=== PATIENT | female | born 1990 | race Caucasian/White ===

== ENCOUNTER 2024-11-27 11:59 | Emergency (ER) | payer MEDICAID ==
[~2024-11-27] VITALS: Ht 170.2 cm; Wt 130.0 kg
[2024-11-27] MEDS: KETOROLAC TROMETH 60MG/2ML VIAL IM ONE (14:17)
[2024-11-27] MEDS: ACETAMINOPHEN 325 MG TAB PO ONE (14:17)
[2024-11-27] MEDS: ONDANSETRON ODT 4 MG TAB PO ONE (14:19)
[2024-11-27 14:25] VITALS: PULSE 64; RESP 18; O2SAT 95
--- NOTE | 2024-11-27 15:38 | DVH ---
CLINICAL INDICATION: fall, R knee pain TECHNIQUE: 3 radiographic views of the right knee were obtained. Comparison: None FINDINGS/IMPRESSION: There is no evidence of acute fracture or dislocation. The visualized joint space is well maintained. The alignment is anatomical. There is no radiopaque foreign body. HS:Y
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
[2024-11-27] MEDS ORDERED: IBUP-1455 PO (16:18)
[2024-11-27] MEDS ORDERED: METH-1181 PO (16:18)
[2024-11-27] MEDS ORDERED: ACET-1304 PO (16:18)
[2024-11-27 16:30] VITALS: BP 149/99; PULSE 77; RESP 18; TEMP 98.5; O2SAT 95
== END 2024-11-27 16:35 | disposition home or self-care (01) ==
LOC: ER 11:59
DX: S39.012A Strain of muscle, fascia and tendon of lower back, initial encounter (principal); S70.01XA Contusion of right hip, initial encounter; S80.01XA Contusion of right knee, initial encounter; K21.9 Gastro-esophageal reflux disease without esophagitis; F17.210 Nicotine dependence, cigarettes, uncomplicated; Z88.8 Allergy status to other drugs, medicaments and biological substances; Z79.899 Other long term (current) drug therapy; Z98.890 Other specified postprocedural states; W18.39XA Other fall on same level, initial encounter; Y93.89 Activity, other specified; Y92.89 Other specified places as the place of occurrence of the external cause; Y99.8 Other external cause status
CPT/HCPCS: 36415; 72131; 73562; 74176; 84702; 96372; 99285; J1885; Q0162

== ENCOUNTER 2025-01-13 08:54 | Emergency (ER) | payer MEDICAID ==
[~2025-01-13] VITALS: Ht 170.2 cm; Wt 126.4 kg
[~2025-01-13 08:54] MED LIST: ACET-1304 PO; IBUP-1455 PO; METH-1181 PO
[2025-01-13 08:56] VITALS: PULSE 114; RESP 18; O2SAT 98
[2025-01-13 11:21] VITALS: BP 115/89; RESP 16; O2SAT 99
[2025-01-13] MEDS: ONDANSETRON ODT 4 MG TAB PO ONE (11:21)
[2025-01-13 11:22] LABS: Urine Bacteria FEW /hpf (None Seen); Urine Blood Negative /uL (Negative); Urine Clarity Turbid (Clear); Urine Color Colorless (Yellow); Urine Protein, UAD Negative (Negative); Urine Specific Gravity 1.006 (1.001-1.035); Urine Squamous Epithelial Cell MOD /hpf (<5); Urine Urobilinogen Normal (Negative); Urine WBC 1 /HPF (0-5); Urine pH 7.5 (5.0-9.0)
--- NOTE | 2025-01-13 11:23 | ED.PDOC ---
HPI Comments 34-year-old female presents to the ER with a chief complaint of palpitations x onset today with associated nausea. Patient states that she woke up with palpitations at 0530 this morning and describes as "pounding in my chest". Patient also reports substernal chest pain episodes that are intermittent in timing, not currently active at time of evaluation. Patient reports nausea, but denies any active vomiting at this time. Denies SOB. Patient also states that she started Wegovy x 2 weeks ago and has had constipation for x 3 days, but had a large bowel movement this morning. Chief Complaint: Palpitations Time Seen by MD: 10:50 Primary Care Provider: SHEELA Renner Notes: Medications, Allergies Allergies: Coded Allergies: Fish Allergy (Verified Allergy, Unknown, 02/10/16) Hydrocodone (Verified Allergy, Unknown, 02/10/16) Home Meds Active Scripts Methocarbamol (Methocarbamol) 500 Mg Tab, 1000 MG PO Q8HPRN PRN, #30 TAB prn muscle pain/spasm Prov:TYRONE ROBERSON MD 11/27/24 Acetaminophen (Tylenol Extra Strength) 500 Mg Tab, 1000 MG PO Q6HP PRN, #30 TAB prn pain Prov:TYRONE ROBERSON MD 11/27/24 Ibuprofen Micronized (Ibuprofen) 800 Mg Tab, 800 MG PO Q8HP PRN, #30 TAB prn pain Prov:TYRONE ROBERSON MD 11/27/24 Information Source: Patient Mode of Arrival: Ambulatory Severity: Moderate Timing: Days Duration: Intermittent Prehospital treatment: None Location: Chest (L) Radiation: No Radiation Quality: Other (POUNDING ) Onset: At Rest Cardiac Risk Factors: None PE Risk Factors: None History of: None Associated Signs and Symptoms: Palpitations, N/V Past Medical History PAST MEDICAL HISTORY: Anxiety, Depression Surgical History: Denies all surgeries Family History Family History: Reviewed,noncontributory to illness, Unobtainable Social History Smoker: Cigarettes Alcohol: Occasionally Drugs: Denies Drug Use Lives In: Home Constitutional: denies: chills, diaphoresis, fatigue, fever, malaise, sweats, weakness, others EENTM: denies: blurred vision, double vision, ear bleeding, ear discharge, ear drainage, ear pain, ear ringing, eye pain, eye redness, hearing loss, mouth pain, mouth swelling, nasal discharge, nose bleeding, nose congestion, nose pain, photophobia, tearing, throat pain, throat swelling, voice changes, others Respiratory: denies: cough, hemoptysis, orthopnea, SOB at rest, shortness of breath, SOB with excertion, stridor, wheezing, others Cardiovascular: reports: palpitations; denies: chest pain, dizzy spells, diaphoresis, Dyspnea on exertion, edema, irregular heart beat, left arm pain, lightheadedness, PND, syncope, others Gastrointestinal: reports: nausea; denies: abdomen distended, abdominal pain, blood streaked bowels, constipated, diarrhea, dysphagia, difficulty swallowing, hematemesis, melena, poor appetite, poor fluid intake, rectal bleeding, rectal pain, vomiting, others Genitourinary: denies: abnormal vagina bleeding, burning, dyspareunia, dysuria, flank pain, frequency, hematuria, incontinence, pain, , vagina discharge, urgency, others Neurological: denies: dizziness, fainting, headache, left sided numbness, left sided weakness, numbness, paresthesia, pre-existing deficit, right sided numbness, right sided weakness, seizure, speech problems, tingling, tremors, weakness, others Musculoskeletal: denies: back pain, gout, joint pain, joint swelling, muscle pain, muscle stiffness, neck pain, others Integumetry: denies: bruises, change in color, change in hair/nails, dryness, laceration, lesions, lumps, rash, wounds, others Allergic/Immunocompromised: denies: Difficulty Healing, Frequent Infections, Hives, Itching, others Hematologic/Lymphatic: denies: anemia, blood clots, easy bleeding, easy bruising, swollen glands, others Endocrine: denies: excessive hunger, excessive sweating, excessive thirst, excessive urination, flushing, intolerance to cold, intolerance to heat, unexplained weight gain, unexplained weight loss, others Psychiatric: denies: anxiety, bipolar disorder, depression, hopeless, panic disorder, schizophrenia, sleepless, suicidal, others All Other Systems: Reviewed and Negative Physical Exam General Appearance: Mild Distress, Obese HEENT: Normal ENT Inspection, Pharynx Normal, TMs Normal Neck: Full Range of Motion, Non-Tender, Normal, Normal Inspection Respiratory: Chest Non-Tender, Lungs Clear, No Accessory Muscle Use, No Respiratory Distress, Normal Breath Sounds Cardiovascular: No Edema, No JVD, No Murmur, No Gallop, Normal Peripheral Pulses, Regular Rate/Rhythm Breast Exam: Deferred Gastrointestinal: No Organomegaly, Non Tender, No Pulsatile Mass, Normal Bowel Sounds, Soft Genitalia: Deferred Pelvic: Deferred Rectal: Deferred Extremities: No calf tenderness, Normal capillary refill, Normal inspection, Normal range of motion, Non-tender, No pedal edema Musculoskeletal : Apperance: Normal Neurologic: Alert, denture contour wire specialist II-XII nml as Tested, No Motor Deficits, Normal Affect, Normal Mood, No Sensory Deficits Cerebellar Function: Normal Reflexes: Normal Skin: Dry, Normal Color, Warm Lymphatic: No Adenopathy EKG EKG : Pulse Rate (adult): 84 Ronald: Normal Cardiac Rhythm: NSR Block: None Hypertrophy: None ST: Normal Comments LOW VOLTAGE, PRECORD LEADS Was a procedure done? Was a procedure done?: No CP Differential Dx Differential Diagnosis: Anxiety / Panic Attack, Electrolyte Disorder Differential Diagnosis: Angina, Chest Wall Pain, Costochondritis, Esophageal reflux/spasm, Gastritis, Pericarditis, Pneumothorax, Pulmonary Embolus Comment Dehydration, side effect of Wegovy X-Ray, Labs, Meds, VS Vital Signs Date Time Temp Pulse Resp B/P (MAP) Pulse Ox O2 Delivery O2 Flow Rate FiO2 01/13/25 11:27 84 01/13/25 11:21 74 16 115/89 (98) 99 01/13/25 09:58 84 01/13/25 08:56 98.2 114 18 138/103 (115) 98 135/100 (112) 01/13/25 08:56 114 18 98 Room Air* 0 21 Lab Test 01/13/25 10:14 01/13/25 09:20 01/13/25 09:05 Range/Units Troponin I High Sensitivity < 3 L < 3 L </=34 ng/L Urine Color Colorless Yellow Urine Clarity Turbid H Clear Urine pH 7.5 5.0-9.0 Urine Specific [place] 1.006 1.001-1.035 Urine Protein Negative Negative Urine Ketones Negative Negative Urine Blood Negative Negative /uL Urine Nitrite Negative Negative Urine Bilirubin Negative Negative Urine Urobilinogen Normal Negative mg/dL Urine Leukocyte Esterase Negative Negative /uL Urine RBC <1 0 - 4 /hpf Urine Microscopic WBC 1 0-5 /HPF Urine Squamous Epithelial Cells Mod <5 /hpf Urine Bacteria Few H None Seen /hpf Urine Glucose Normal Normal mg/dL Current Medications Medications (Trade) Dose Ordered Sig/Edin Route Start Time Stop Time Status Last Admin Ondansetron HCl (Zofran Po) 4 mg ONCE ONCE PO 01/13/25 11:15 01/13/25 11:16 DC 01/13/25 11:21 Time of 1ST Reevaluation: 11:20 Reevaluation 1ST: Unchanged Time of 2ND Reevaluation: 12:05 Reevaluation 2ND: Improved Patient Education/Counseling: Diagnosis, Treatment, Prognosis Family Education/Counseling: Diagnosis, Treatment, Prognosis Departure 1 Departure Time of Disposition: 12:03 Impression: Primary Impression: Palpitations Additional Impression: Dehydration Disposition: HOME / SELF CARE / HOMELESS Condition: Fair Additional Instructions: Follow up with the primary care physician to see if he should still continue Wegovy. Please make sure you drink plenty of water. Please return back to the ER if symptoms worsen or persist. Discharged With: Self Critical Care Note Critical Care Time?: No Stability Stability form required: No Heart Score Heart Score: Heart Score Response (Comments) Value History Moderate Suspicious 1 EKG Normal 0 Age <45 0 Risk Factors 1 or 2 risk factors 1 Troponin Normal limit 0 Total 2 I personally scribed for FADIA HULL MD ([email or web address]) on 01/13/25 at 11:23. Electronically submitted by Magdy Flood ([email or web address]). I personally scribed for FADIA HULL MD ([email or web address]) on 01/13/25 at 11:27. Electronically submitted by Magdy Flood ([email or web address]). I personally scribed for FADIA HULL MD ([email or web address]) on 01/13/25 at 12:03. Electronically submitted by Magdy Flood ([email or web address]). I personally scribed for FADIA HULL MD ([email or web address]) on 01/13/25 at 12:03. Electronically submitted by Magdy Flood ([email or web address]). FADIA HULL MD Jan 13, 2025 11:23
[2025-01-13 11:27] VITALS: PULSE 84
--- NOTE | 2025-01-15 01:04 | ECG ---
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
--- NOTE | 2025-01-15 08:04 | ECG ---
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
== END 2025-01-13 12:11 | disposition home or self-care (01) ==
LOC: ER 08:57
DX: E86.0 Dehydration (principal); R00.2 Palpitations; F41.9 Anxiety disorder, unspecified; F32.9 Major depressive disorder, single episode, unspecified; F17.210 Nicotine dependence, cigarettes, uncomplicated; Z79.899 Other long term (current) drug therapy; Z88.5 Allergy status to narcotic agent; Z91.013 Allergy to seafood
CPT/HCPCS: 36415; 81001; 84484; 93005; 99284; Q0162

== ENCOUNTER 2025-10-05 08:14 | Emergency (ER) | payer MEDICAID ==
[~2025-10-05] VITALS: Ht 170.2 cm; Wt 115.2 kg
[2025-10-05] MEDS ORDERED: KETOROLAC TROMETH 30 MG/ML 1ML VIAL ONE (09:59)
[2025-10-05] MEDS ORDERED: FAMOTIDINE (10MG/ML) 2ML VL IV ONE (09:59)
[2025-10-05] MEDS ORDERED: ACETAMINOPHEN 325 MG TAB PO ONE (10:00)
[2025-10-05] MEDS ORDERED: ONDANSETRON ODT 4 MG TAB ONE (10:01)
[2025-10-05] MEDS ORDERED: FAMOTIDINE 20 MG TAB ONE (10:02)
--- NOTE | 2025-10-05 10:08 | DVH ---
AP portable chest CLINICAL INDICATION: weakness FINDINGS: Heart size is normal. No infiltrates or effusions. No bony thoracic abnormalities. IMPRESSION: 1. Normal chest x-ray.
[2025-10-05] MEDS: ONDANSETRON ODT 4 MG TAB PO ONE (10:15)
[2025-10-05] MEDS: ACETAMINOPHEN 325 MG TAB PO ONE (10:16)
[2025-10-05] MEDS: KETOROLAC TROMETH 30 MG/ML 1ML VIAL IM ONE (10:18)
[2025-10-05] MEDS: FAMOTIDINE 20 MG TAB PO ONE (10:18)
--- NOTE | 2025-10-05 10:45 | ED.PDOC ---
History of Present Illness HPI Comments This is a 35 year-old female who presents to the ED with a chief complaint of N/V, sweats, and body pain for X5 days. 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 Patient has a social history of MJ usage, cigarettes, and occasional ETOH intoxification. Patient has no further com plaints at this time and otherwise denies symptoms of dizziness, weakness, hematemesis, dysuria, or hematuria. Chief Complaint: Flu like Time Seen by MD: 09:25 Reviewed Notes: Nurses Notes Information Source: Patient Mode of Arrival: Ambulatory Timing: Days Duration: Since onset Severity: Moderate Past Medical History PAST MEDICAL HISTORY: Anxiety, Depression Past Medical History (Other): PCOS Surgical History: Denies all surgeries Family History Family History: Reviewed,noncontributory to illness, Unobtainable Social History Smoker: Cigarettes Alcohol: Occasionally Drugs: Marijuana Lives In: Home Constitutional: Sweats, Other (body pain ) EENTM: No Symptoms Reported Respiratory: No Symptoms Reported Cardiovascular: No Symptoms Reported Gastrointestinal: Nausea, Vomiting Genitourinary: No Symptoms Reported Neurological: No Symptoms Reported Musculoskeletal: No Symptoms Reported Integumentary: No Symptoms Reported Allergic/Immunocompromised: others Hematologic/Lymphatic: No Symptoms Reported Endocrine: No Symptoms Reported Psychiatric: No symptoms Reported All Other Systems: Reviewed and Negative Physical Exam General Appearance: Mild Distress, Obese HEENT: Normal ENT Inspection, Pharynx Normal, TMs Normal Neck: Full Range of Motion, Non-Tender, Normal, Normal Inspection Respiratory: Chest Non-Tender, Lungs Clear, No Respiratory Distress, Normal Breath Sounds Cardiovascular: No Edema, No Murmur, No Gallop, Normal Peripheral Pulses, Regular Rate/Rhythm Breast Exam: Deferred Gastrointestinal: Non Tender, Normal Bowel Sounds, Soft Genitalia: Deferred Pelvic: Deferred Rectal: Deferred Extremities: Normal inspection, Normal range of motion, Non-tender, No pedal edema Musculoskeletal : Apperance: Normal Neurologic: Alert, No Motor Deficits, Normal Affect, Normal Mood, No Sensory Deficits Cerebellar Function: NOT DONE Reflexes: NOT DONE Skin: Dry, Normal Color, Warm Lymphatic: No Adenopathy Was a procedure done? Was a procedure done?: No Fever Differential Dx Differential Diagnosis: Dehydration, UTI, Viral Syndrome X-Ray, Labs, Meds, VS Vital Signs Date Time Temp Pulse Resp B/P (MAP) Pulse Ox O2 Delivery O2 Flow Rate FiO2 10/05/25 10:16 98.5 10/05/25 09:17 97.9 72 18 128/87 (101) 100 97.9 10/05/25 09:17 72 18 100 Room Air 10/05/25 08:16 98.3 72 17 144/83 99 98.3 Lab Test 10/05/25 10:20 Range/Units White Blood Count 7.6 4.4-10.8 10^3/uL Red Blood Count 5.35 H 4.0-5.20 10^6/uL Hemoglobin 15.8 12.2-16.2 g/dL Hematocrit 46.2 H 36.0-46.0 % Mean Corpuscular Volume 86.3 80.0-100.0 fL Mean Corpuscular Hemoglobin 29.6 28.0-32.0 pg Mean Corpuscular Hemoglobin Concent 34.2 32.0-36.0 g/dL Red Cell Distribution Width 13.6 11.8-14.3 % Platelet Count 220 140-450 10^3/uL Mean Platelet Volume 8.0 6.9-10.8 fL Neutrophils (%) (Auto) 62.2 37.0-80.0 % Lymphocytes (%) (Auto) 30.7 10.0-50.0 % Monocytes (%) (Auto) 6.2 0.0-12.0 % Eosinophils (%) (Auto) 0.6 0.0-7.0 % Basophils (%) (Auto) 0.3 0.0-2.0 % Neutrophils # (Auto) 4.7 1.6-8.6 10 ^3/uL Lymphocytes # (Auto) 2.3 0.4-5.4 10 ^3/uL Monocytes # (Auto) 0.5 0-1.3 10 ^3/uL Eosinophils # (Auto) 0 0-0.8 10 ^3/uL Basophils # (Auto) 0 0-0.2 10 ^3/uL Nucleated Red Blood Cells 0.1 % Sodium Level 139 136-145 mmol/L Potassium Level 4.5 3.5-5.1 mmol/L Chloride Level 106 98-107 mmol/L Carbon Dioxide Level 27 20-31 mmol/L Anion Gap 6 5-15 Blood Urea Nitrogen 9 9-23 mg/dL Creatinine 0.72 0.550-1.02 mg/dL Glomerular Filtration Rate Calc 111 >90 mL/min BUN/Creatinine Ratio 12.5 10.0-20.0 Serum Glucose 89 74-106 mg/dL Calcium Level 9.7 8.7-10.4 mg/dL Current Medications Medications (Trade) Dose Ordered Sig/Edin Route Start Time Stop Time Status Last Admin Ondansetron HCl (Zofran Po) 4 mg ONCE ONCE PO 10/05/25 10:00 10/05/25 10:01 DC 10/05/25 10:15 Acetaminophen (Tylenol Tablet) 650 mg ONCE ONCE PO 10/05/25 10:00 10/05/25 10:01 DC 10/05/25 10:16 Famotidine (Pepcid Tablet) 20 mg ONCE ONCE PO 10/05/25 10:00 10/05/25 10:01 DC 10/05/25 10:18 Time of 1ST Reevaluation: 10:40 Reevaluation 1ST: Unchanged Patient Education/Counseling: Diagnosis, Treatment Family Education/Counseling: No Family Present SEPSIS Sepsis Screen Date sepsis recognized/suspect: Oct 05, 2025 Time Sepsis recognized/suspect: 815 Recent Procedure: No On Antibiotic Therapy: No Respiratory Rate >20: No Heart Rate >90: No Temp<36 C (96.8 F) or >38.3 C: No SBP <90 or MAP <65 mmHG: No New Acute Mental Status Change: No Is the patient on CPAP, BIPAP,: No Physician Orders Urinalysis (10/05/25 09:46) Chest Portable (10/05/25 09:46) Vital Signs Date Time Temp Pulse Resp B/P (MAP) Pulse Ox O2 Delivery O2 Flow Rate FiO2 10/05/25 10:16 98.5 10/05/25 09:17 97.9 72 18 128/87 (101) 100 97.9 10/05/25 09:17 72 18 100 Room Air 10/05/25 08:16 98.3 72 17 144/83 99 98.3 Laboratory Tests Test 10/05/25 10:20 White Blood Count 7.6 10^3/uL (4.4-10.8) Medications Medications Dose Ordered Sig/Edin Route Start Time Stop Time Status Last Admin Dose Admin Acetaminophen 650 mg ONCE ONCE PO 10/05/25 10:00 10/05/25 10:01 DC 10/05/25 10:16 Famotidine 20 mg ONCE ONCE PO 10/05/25 10:00 10/05/25 10:01 DC 10/05/25 10:18 Ondansetron HCl 4 mg ONCE ONCE PO 10/05/25 10:00 10/05/25 10:01 DC 10/05/25 10:15 Departure 1 Departure Time of Disposition: 11:51 (My judgment the patient likely with viral syndrome. Patient's workup is benign. We will discharge patient home with outpatient follow up) Impression: Primary Impression: Acute viral syndrome Disposition: HOME / SELF CARE / HOMELESS Condition: Stable Additional Instructions: You likely have a viral illness. It is important to stay well rested and well hydrated. You can take Tylenol and Motrin as needed for pain and fever. For a sore throat you can drink warm tea with honey. You can take [id number] pseudoephedrine for nasal congestion. He should follow up with your regular doctor within 1 week to ensure you are doing better. If your symptoms worsen or you have any other concerns please return to the emergency room. Discharged With: Self Critical Care Note Critical Care Time?: No Stability Stability form required: No Heart Score Heart Score: Heart Score Response (Comments) Value History N/A 0 EKG N/A 0 Age N/A 0 Risk Factors N/A 0 Troponin N/A 0 Total 0 I personally scribed for NINA DAWN MD ([email or web address]) on 10/05/25 at 10:45. Electronically submitted by Mayi TaverasHuafeng Bi[employer]). NINA DAWN MD Oct 05, 2025 10:45
[2025-10-05 10:50] LABS: Hematocrit 46.2 % (36.0-46.0); Hemoglobin 15.8 g/dL (12.2-16.2); Mean Corpuscular Hemoglobin 29.6 pg (28.0-32.0); Mean Corpuscular Volume 86.3 fL (80.0-100.0); Nucleated Red Blood Cells % 0.1 %
[2025-10-05 10:55] LABS: Chloride 106 mmol/L (98-107); Potassium 4.5 mmol/L (3.5-5.1); Sodium 139 mmol/L (136-145)
[2025-10-05 10:56] LABS: Anion Gap 6 (5-15); Calcium 9.7 mg/dL (8.7-10.4); Carbon Dioxide 27 mmol/L (20-31)
[2025-10-05 11:01] LABS: BUN/Creatinine Ratio 12.5 (10.0-20.0); Blood Urea Nitrogen 9 mg/dL (9-23); Glucose 89 mg/dL (74-106)
[2025-10-05 12:12] VITALS: BP 121/76; PULSE 66; RESP 17; TEMP 98.9; O2SAT 100
[2025-10-05 13:38] LABS: Urine Protein, UAD Negative (Negative)
== END 2025-10-05 12:14 | disposition home or self-care (01) ==
LOC: ER 08:14
DX: B34.9 Viral infection, unspecified (principal); F17.210 Nicotine dependence, cigarettes, uncomplicated; Z79.899 Other long term (current) drug therapy
CPT/HCPCS: 36415; 71045; 80048; 81001; 85025; 99284; Q0162; J1885; J3490